=== PATIENT | male | born 1995 | race African-American/Black ===

== ENCOUNTER 2024-08-03 11:53 | Outpatient (CLI) | payer BC | END 2024-08-03 11:54 | disposition home or self-care (01) | LOC: CSHRAD 11:53 | PROVIDERS: ATTEND Pediatrics | DX: J20.9 Acute bronchitis, unspecified (principal) | CPT/HCPCS: 71046 ==

== ENCOUNTER 2025-04-06 16:46 | Emergency (ER) | payer BC ==
[2025-04-06] MEDS ORDERED: Ondansetron PF 4 MG/2 ML Vial ONE (19:18)
[2025-04-06 19:29] LABS: #Basophils 0.06 10x3/uL (0.0-0.2); #Eosinophils 0.38 10x3/uL (0.0-0.5); #Monocytes 1.22 10x3/uL (0.0-1.1); #Neutrophils 6.19 10x3/uL (1.5-8.4); %Basophils 0.5 % (0.0-2.0); %Eosinophils 3.4 % (0.0-6.0); %Lymphocytes 29.7 % (18.0-47.0); %Monocytes 10.9 % (0.0-10.0); %Neutrophils 55.3 % (40.0-75.0); Hematocrit 45.9 % (38.8-50.0); Hemoglobin 14.5 g/dL (13.5-17.5); Mean Corpuscular Hemoglobin 29.0 pg (27.0-33.0); Mean Corpuscular Volume 91.8 fL (81.2-95.1); Platelet Count 365 10x3/uL (150-450); Red Blood Cell (RBC) Count 5.00 10x6/uL (4.32-5.72); White Blood Cell (WBC) Count 11.20 10x3/uL (3.5-10.5)
[2025-04-06 19:37] LABS: ALT (SGPT) 64 U/L (Less than 45); AST (SGOT) 42 U/L (11-34); Albumin 4.2 g/dL (3.1-4.5); Alkaline Phosphatase 78 U/L (40-110); Anion Gap 13 mmol/L (10-20); BUN (Urea Nitrogen) 10 mg/dL (8.9-20.6); Bilirubin, Total 0.2 mg/dL (0.3-1.2); Calc. Creatinine Clearance 0 mL/min (70-130); Calcium 9.3 mg/dL (7.8-10.44); Carbon Dioxide 26 mmol/L (22-29); Chloride 109 mmol/L (98-107); Globulin 3.4 g/dL (2.4-3.5); Glucose 101 mg/dL (70-105); Potassium 4.0 mmol/L (3.5-5.1); Sodium 144 mmol/L (136-145)
== END 2025-04-06 21:50 | disposition home or self-care (01) ==
LOC: CSHERS 16:46
DX: S09.90XA Unspecified injury of head, initial encounter (principal); S20.212A Contusion of left front wall of thorax, initial encounter; M54.50 Low back pain, unspecified; M25.561 Pain in right knee; M25.562 Pain in left knee; V49.40XA Driver injured in collision with unspecified motor vehicles in traffic accident, initial encounter
CPT/HCPCS: 36415; 70450; 71260; 72125; 74177; 80053; 85025; 96374; 96375; J2270